=== PATIENT | female | born 1970 | race Hispanic/Latino ===

== ENCOUNTER → 2019-04-08 | Outpatient (CLI) | payer BC ==
--- NOTE | 2019-04-09 09:45 | Diagnostic Imaging Report ---
Transabdominal pelvic ultrasound. History: Right adnexal cyst Comparison: MRI dated 04/21/2015. Discussion: Transabdominal evaluation of the pelvis was performed in the transverse and longitudinal planes. The uterus is normal in size measuring 9.0 x 4.2 x 5.6 cm. The endometrial stripe is within normal limits at 4 mm. The right ovary was not visualized. The left ovary measures 2.6 x 1.9 x 1.4 cm. Complex cyst in the right adnexa measures 5.3 x 3.3 x 3.5 cm. Left ovarian cyst measures 1.5 x 0.9 x 1.3 cm. There is no evidence of free fluid. IMPRESSION: Complex right adnexal cyst. Signed by: Dr. Juancarlos Petty DO on 04/09/2019 9:30 AM
--- NOTE | 2019-04-09 09:45 | Diagnostic Imaging Report ---
Renal ultrasound. History: Cyst Discussion: Transverse and longitudinal images of the kidneys were obtained demonstrating normal renal sizes and echogenicities. There is no evidence of hydronephrosis, mass or renal calculus. The right kidney measures 10.0 x 6.0 x 5.4 cm and the left kidney measures 10.7 x 5.7 x 3.3 cm. Maximal cortical thickness on the right is 1.6 cm and on the left 2.2 cm. Mid pole right renal cyst measures 2.5 x 1.8 x 1.9 cm. The urinary bladder is unremarkable. Bilateral urinary jets are noted. There is no evidence of free fluid. IMPRESSION: Benign-appearing right mid pole renal cyst. Signed by: Dr. Juancarlos Petty DO on 04/09/2019 9:21 AM
--- NOTE | 2019-04-09 10:45 | Diagnostic Imaging Report ---
Thyroid ultrasound. History: Thyroid nodule Comparison: Ultrasound dated 03/30/2015. Discussion: Transverse and longitudinal images of the thyroid were obtained demonstrating normal echogenicity of the thyroid. The sizes of the lobes are normal with the right thyroid lobe measuring 4.4 x 1.4 x 2.0 cm and the left thyroid lobe measuring 4.7 x 1.8 x 1.8 cm. The isthmus is within normal limits measuring 0.3 cm. Hypoechoic nodule in the midportion of the right lobe measures 0.6 x 0.5 x 0.5 cm (previously measured 0.9 x 0.6 x 0.6 cm). Second hypoechoic nodule lateral inferior pole on the right measures 0.5 x 0.3 x 0.4 cm (previously measured 0.5 x 0.4). Left hypoechoic nodule in the medial mid portion of the left thyroid lobe measures 0.4 x 0.3 x 0.3 cm. Annual surveillance is recommended. None of these nodules meet criteria at this time for biopsy. IMPRESSION: Bilateral thyroid nodules. Signed by: Dr. Juancarlos Petty DO on 04/09/2019 10:41 AM
== END ==
LOC: US 15:04
PROVIDERS: ATTEND Family Medicine
DX: E04.2 Nontoxic multinodular goiter (principal); N28.1 Cyst of kidney, acquired; D23.9 Other benign neoplasm of skin, unspecified
CPT/HCPCS: 76536; 76770; 76856

== ENCOUNTER → 2020-06-16 | Outpatient (CLI) | payer BC ==
--- NOTE | 2020-06-16 09:47 | Diagnostic Imaging Report ---
EXAM: US ABDOMEN COMPLETE DATE: 06/16/2020 8:35 AM INDICATION: Renal cyst COMPARISON: Renal ultrasound from 04/08/2019 FINDINGS: The visualized pancreas appears unremarkable. The liver is normal in size measuring 12.5 cm in length. Hepatic echogenicity is mildly increased suggestive of fatty infiltration. No focal hepatic abnormality is identified. The main portal vein is patent with antegrade flow and diameter of 1.0 cm, within normal limits. The spleen is normal in size measuring 8.7 cm in length and demonstrates an unremarkable sonographic appearance. The kidneys are normal in size measuring 9.2 cm in length on the right and 11.1 cm in length on the left. Cortical thickness/echogenicity is within normal limits. There is a simple cyst identified within the mid right kidney measuring 2.4 x 2.2 x 2.6 cm, similar to the prior examination. There is no evidence for solid renal mass, hydronephrosis, or shadowing calculi. The visualized portions the IVC and aorta are within normal limits. There is no ascites visualized. IMPRESSION: 1. Mildly increased hepatic echogenicity suggestive of steatosis. 2. Unchanged simple right renal cyst. Signed by: Dr. Denzel Nelson MD on 06/16/2020 9:44 AM
--- NOTE | 2020-06-16 09:52 | Diagnostic Imaging Report ---
EXAM: US THYROID DATE: 06/16/2020 8:28 AM INDICATION: Thyroid cyst COMPARISON: 04/08/2019 FINDINGS: The right thyroid lobe measures 4.1 x 1.6 x 1.9 cm. The isthmus measures 4 mm in thickness. The left thyroid lobe measures 4.7 x 1.8 x 1.8 cm. There is a 0.8 x 0.6 x 0.9 cm hypoechoic solid nodule identified within the inferior pole of the right thyroid lobe, , unchanged from the prior examination. Remaining previously visualized subcentimeter nodules are not well appreciated on today's examination. IMPRESSION: Stable subcentimeter nodule identified within the right thyroid lobe. Remaining previously visualized subcentimeter nodules are not well appreciated on today's examination. No new nodules identified. Signed by: Dr. Denzel Nelson MD on 06/16/2020 9:49 AM
== END ==
LOC: US 08:11
PROVIDERS: ATTEND Family Medicine
DX: E04.1 Nontoxic single thyroid nodule (principal); N28.1 Cyst of kidney, acquired
CPT/HCPCS: 76536; 76700